=== PATIENT | female | born 1955 | race Caucasian/White ===

== ENCOUNTER 2019-08-08 12:14 | Emergency (ER) | payer MEDICARE ==
[~2019-08-08] VITALS: Ht 149.9 cm; Wt 52.7 kg
[2019-08-08] MEDS ORDERED: LEVO75 PO (12:27)
[2019-08-08 15:18] LABS: APPEARANCE,URINE CLEAR (CLEAR); BILIRUBIN,URINE NEGATIVE (NEGATIVE); GLUCOSE, URINE (UA) NEGATIVE (NEGATIVE); KETONES,URINE NEGATIVE (NEGATIVE); LEUKOCYTE ESTERASE ,URINE NEGATIVE (NEGATIVE); NITRATE,URINE NEGATIVE (NEGATIVE); OCCULT BLOOD,URINE NEGATIVE (NEGATIVE); PROTEIN,URINE NEGATIVE (NEGATIVE); UROBILINOGEN,URINE 0.2 mg/dL (<=1.0)
[2019-08-08 15:49] VITALS: BP 120/61
== END 2019-08-08 15:44 | disposition home or self-care (01) ==
LOC: EMS 12:17
DX: N39.8 Other specified disorders of urinary system (principal); E03.9 Hypothyroidism, unspecified